=== PATIENT | male | born 1950 | race Caucasian/White ===

== ENCOUNTER 2019-09-29 14:06 | Inpatient (IN) ==
--- NOTE | 2019-09-29 14:45 | PROVIDER DOCUMENTATION ---
HPI-EENT General - General Chief Complaint: Flu Symptoms Stated Complaint: COLD SYMPTOMS/ SORE THROAT Time Seen by Provider: 09/29/19 14:34 Source: patient Allergies/Adverse Reactions: Patient Allergies Allergy/AdvReac Type Severity Reaction Status Date / Time No Known Allergies Allergy Verified 09/29/19 14:45 Home Medications: Home Medication List Medication Instructions Recorded Confirmed Last Taken Type Aspirin EC 81 mg PO DAILY 03/24/14 09/29/19 08/26/15 History Docusate Sodium [Stool Softener] 100 mg PO BID 03/24/14 09/29/19 08/26/15 History Gabapentin 600 mg PO TID 03/24/14 09/29/19 08/26/15 History Omeprazole 40 mg PO QAM 03/24/14 09/29/19 08/26/15 History SIMVAstatin [Zocor] 40 mg PO QHS 03/24/14 09/29/19 08/26/15 History Trazodone [Desyrel] 50 mg PO HS PRN PRN 03/24/14 09/29/19 08/26/15 History Citalopram [Celexa] 20 mg PO DAILY 02/23/17 09/29/19 Unknown History Insulin Glargine [Lantus] 65 units SQ QHS 02/23/17 09/29/19 Unknown History Primidone 25 mg PO QHS 02/23/17 09/29/19 Unknown History Cholecalciferol (Vitamin D3) 1 cap PO DIRECTED 04/28/19 09/29/19 Unknown History [Vitamin D3] Insulin Lispro [Humalog] 25 units SQ AC + HS 04/28/19 09/29/19 Unknown History Sucralfate 1 tab PO AC + HS 04/28/19 09/29/19 Unknown History Tizanidine [Zanaflex] 1 tab PO QHS 04/28/19 09/29/19 Unknown History Lubiprostone [Amitiza] 24 mcg PO BID 06/02/19 09/29/19 Unknown History CefDINIR [Omnicef] 300 mg PO BID 09/29/19 09/29/19 Unknown History - History of Present Illness-EENT General Nature of Presenting Problem: Patient is a 68yo M who presents with complaints of sore throat, cough, nasal congestion, decreased appetite, fever, and body aches x1 week. Reports symptoms have worsened over the past 4 days. States he saw his PCP yesterday who gave him a steroid shot and Omnicef Rx. Patient reports today, he is having difficulty swallowing saliva. Reports he is a diabetic, and has not been able to eat much over the past 4 days. , who is at bedside, reports his blood sugar this morning was > 400, and she gave him some insulin. Upon examination, patient is able to swallow some saliva, but is having to spit out some. Denies difficulty breathing, CP, or SOB. EENT Location: reports: nose, throat Quality of Pain: reports: aching Severity: reports: moderate Onset/Duration: reports: 1 week ago Timing: reports: still present, getting worse Prearrival Treatment: Initiated prescription meds Associated Symptoms: reports: cough, fever, nasal congestion/drainage, sore throat Locality of [place]: Home Similar Symptoms Previously?: No Recently seen or treated by another doctor?: Yes (saw PCP yesterday) - Throat/Dental Throat/Dental Problem Symptoms: reports: sore throat, other (difficulty swallowing). denies: toothache, swelling of jaw/face, trouble breathing Review of Systems - Adult - REVIEW OF SYSTEMS - ADULT Constitutional: reports: see HPI, chills, fever Eyes: reports: no symptoms reported Ears, Nose, Mouth & Throat: reports: see HPI, sinus problem, throat pain, other (difficulty swallowing) Cardiovascular: reports: no symptoms reported. denies: chest pain, palpitations Respiratory: reports: see HPI, cough. denies: shortness of breath Gastrointestinal: reports: see HPI, difficulty swallowing, poor appetite Genitourinary: reports: no symptoms reported Musculoskeletal: reports: no symptoms reported Integumentary: reports: no symptoms reported Neurological: reports: no symptoms reported Psychiatric: reports: no symptoms reported Endocrine: reports: no symptoms reported Hematologic/Lymphatic: reports: no symptoms reported Allergic/Immunologic: reports: no symptoms reported All Other Systems: Reviewed and Negative Past History - Adult - PAST MEDICAL HISTORY-ADULT Review of Records: reports: Nursing Assessment Review, Medications Reviewed, Social history reviewed & non-contributory. Major Childhood Illnesses: reports: denies history Cardiovascular: reports: HTN, hyperlipidemia Respiratory: reports: denies history Gastrointestinal: reports: denies history Obstetrical/Gynecological: reports: denies history Genitourinary: reports: denies history Musculoskeletal: reports: denies history Neurological: reports: denies history Psychiatric: reports: depression Endocrine/Immune: reports: Diabetes Other Conditions: reports: denies history - IMMUNIZATION STATUS Childhood Immunizations: See Nurse Assessment Flu Vaccine: See Nurse Assessment - FAMILY HISTORY Family History: reviewed, not pertinent - SOCIAL HISTORY Smoking: denies, non-smoker Physical Exam- EENT - Physical Exam EENT Initial Vital Signs Reviewed: Yes General Appearance: alert, mild distress. negative: lethargic, slow to respond Eye Exam: bilateral eye: normal inspection, PERRL, EOMI Ear Exam: bilateral ear: auricle normal, canal normal, TM normal Nasal Exam: normal inspection, other (nasal congestion) Throat Exam: tonsillar exudate, tonsillar swelling, other (pharyngeal erythema/exudate). negative: excessive drooling, uvula swelling, voice changes Neck: full range of motion, supple, normal inspection, lymphadenopathy Respiratory: chest non-tender, lungs clear, normal breath sounds, no pleuratic chest pain, no respiratory distress, no accessory muscle use. negative: crackles, rales, rhonchi, stridor, wheezing, retractions, splinting Cardiovascular: regular rate, rhythm Lymphatic: cervical node tenderness Back Exam: normal inspection Extremity: normal range of motion Integumentary: normal color, warm/dry. negative: cyanosis, jaundice, mottled, pallor Neurologic: grossly normal. negative: aphasia, EOM palsy Psych/Mental Status: normal mood/affect, normal thought content, normal thought process, oriented x 3 Progress - PLAN OF CARE/RESULTS Progress/Plan/Lab Results: Vital Signs - 8 hr 09/29/19 14:27 Temperature 98 F Pulse Rate 95 H Respiratory Rate 18 Blood Pressure 162/76 O2 Sat by Pulse Oximetry 98 Laboratory Results - last 24 hr 09/29/19 09/29/19 09/29/19 14:36 14:36 15:17 WBC RBC Hgb Hct MCV MCH MCHC RDW Std Deviation Plt Count MPV Immature Gran % (Auto) Neut % (Auto) Lymph % (Auto) [place] % (Auto) Eos % (Auto) Baso % (Auto) Immature Gran # (Auto) Neut # (Auto) Lymph # (Auto) [place] # (Auto) Eos # (Auto) Baso # (Auto) Sodium 137 Potassium 4.0 Chloride 99 Carbon Dioxide 20 L Anion Gap 18 BUN 30 H Creatinine 1.0 Estimated GFR/1.73 m2 > 60 BUN/Creatinine Ratio 30 Glucose 188 H Calculated Osmolality 285 Calcium 10.1 Total Bilirubin 0.50 AST 13 ALT 12 Alkaline Phosphatase 112 Total Protein 9.2 H Albumin 4.7 Globulin 5.0 Albumin/Globulin Ratio 1.0 Urine Source Urine Color Urine Turbidity Urine pH Ur Specific [place] Urine Protein Ur Glucose (Stick) Ur Ketones (Stick) Urine Blood Urine Nitrite Urine Bilirubin Urobilinogen Dipstick Urine Leukocytes Urine WBC (Auto) Urine RBC (Auto) U Epithel Cells (Auto) Urine Bacteria (Auto) Acetone Level NEGATIVE Influenza A (Rapid) NEGATIVE Influenza B (Rapid) NEGATIVE Group A Strep Rapid NEGATIVE 09/29/19 09/29/19 15:17 15:35 WBC 15.46 H RBC 4.65 L Hgb 14.6 Hct 42.2 MCV 90.8 MCH 31.4 H MCHC 34.6 RDW Std Deviation 12.7 Plt Count 248 MPV 10.1 Immature Gran % (Auto) 0.2 Neut % (Auto) 75.7 H Lymph % (Auto) 16.4 L [place] % (Auto) 7.6 Eos % (Auto) 0.0 Baso % (Auto) 0.1 Immature Gran # (Auto) 0.03 Neut # (Auto) 11.71 H Lymph # (Auto) 2.54 [place] # (Auto) 1.17 H Eos # (Auto) 0.00 Baso # (Auto) 0.01 Sodium Potassium Chloride Carbon Dioxide Anion Gap BUN Creatinine Estimated GFR/1.73 m2 BUN/Creatinine Ratio Glucose Calculated Osmolality Calcium Total Bilirubin AST ALT Alkaline Phosphatase Total Protein Albumin Globulin Albumin/Globulin Ratio Urine Source CLEAN CATCH Urine Color YELLOW Urine Turbidity CLEAR Urine pH 5.0 Ur Specific [place] 1.025 Urine Protein TRACE A Ur Glucose (Stick) 70 A Ur Ketones (Stick) 40 A Urine Blood NEGATIVE Urine Nitrite NEGATIVE Urine Bilirubin NEGATIVE Urobilinogen Dipstick NORMAL Urine Leukocytes TRACE A Urine WBC (Auto) <10 Urine RBC (Auto) <10 U Epithel Cells (Auto) >10 A Urine Bacteria (Auto) NEGATIVE Acetone Level Influenza A (Rapid) Influenza B (Rapid) Group A Strep Rapid Orders Category Date Time Status Admit - [facility] Routine AdmDCTranf 09/29/19 18:12 Active Activity - Up Ad Mary ORDERED Care 09/29/19 18:27 Active Activity - Up with Assistance ORDERED Care 09/29/19 18:12 Active DVT/PE Risk Assess/Protocol [QM] ORDERED Care 09/29/19 18:12 Active FSBS [Finger Stick Blood Sugar (ED)] DIRECTED Care 09/29/19 14:57 Active FSBS/Accucheck Result AC + HS Care 09/29/19 18:27 Active Intake and Output-Strict ORDERED Care 09/29/19 18:12 Active PO Fluid Challenge DIRECTED Care 09/29/19 17:14 Active Vital Signs Order Q 8-HR ASSESS Care 09/29/19 18:[address] NECK W/CONTRAST [CT] Stat Exams 09/29/19 15:47 Completed NECK AP AND/OR LAT SOFT TISSUE [RAD] Stat Exams 09/29/19 14:57 Completed ACETONE SERUM [CHEM] Stat Lab 09/29/19 15:17 Completed CBC WITH ELECTRONIC DIFF [HEME] Stat Lab 09/29/19 15:17 Completed CBC WITH NO DIFF [HEME] Routine Lab 09/30/19 06:00 Ordered COMPREHENSIVE METABOLIC PANEL [CHEM] Routine Lab 09/30/19 06:00 Ordered COMPREHENSIVE METABOLIC PANEL [CHEM] Stat Lab 09/29/19 15:[address] Stat Lab 09/29/19 14:36 Completed Flu [INFLUENZA SCREEN PL] Stat Lab 09/29/19 14:36 Completed MAGNESIUM [CHEM] Routine Lab 09/30/19 06:00 Ordered SPUTUM CULTURE WITH GRAM STAIN [RM] Routine Lab 09/29/19 18:13 Uncollected TSH Routine Lab 09/30/19 06:00 Ordered URINALYSIS W/POSS RFLX CULT [URINALYSIS] Stat Lab 09/29/19 15:35 Completed URINE CULTURE [RM] Routine Lab 09/29/19 16:17 Ordered 0.9% Sodium Chloride Inj [Ns] 1,000 ml Med 09/29/19 18:30 Active IV 125 mls/hr 0.9% Sodium Chloride Inj [Ns] 1,000 ml Med 09/29/19 16:57 Discontinued IV 999 mls/hr 0.9% Sodium Chloride Inj [Ns] 500 ml Med 09/29/19 16:58 Discontinued IV 999 mls/hr Acetaminophen [Tylenol] Med 09/29/19 18:26 Active 650 mg PO Q6H PRN PRN CefTRIAXONE [Rocephin] 1 gm Med 09/29/19 16:39 Discontinued 0.9% Sodium Chloride Inj [Ns] 50 ml IV NOW CefTRIAXONE [Rocephin] 1 gm Med 09/29/19 18:30 Active 0.9% Sodium Chloride Inj [Ns] 50 ml IV Q24H Citalopram [Celexa] Med 09/30/19 09:00 Active 20 mg PO DAILY Docusate Sodium [Colace] Med 09/29/19 21:00 Active 100 mg PO BID Ergocalciferol (Vitamin D2) [Vitamin D] Med 10/02/19 09:00 Active 1 unit PO Sa Gabapentin [Neurontin] Med 09/29/19 21:00 Active 600 mg PO TID@0800,1400,2100 Insulin Lispro [Humalog] Med 09/29/19 21:00 Active See Protocol SUBQ 0700,1100,1600,2100 Lubiprostone [Amitiza] Med 09/29/19 21:00 Active 24 microgm PO BID Omeprazole [Prilosec] Med 09/30/19 09:00 Active 40 mg PO QAM Ondansetron [Zofran] Med 09/29/19 18:26 Active 4 mg IV Q4-6H PRN PRN Primidone [Mysoline] Med 09/29/19 21:00 Active 25 mg PO QHS SIMVAstatin [Zocor] Med 09/29/19 21:00 Active 40 mg PO QHS Sucralfate [Carafate] Med 09/29/19 21:00 Active 1 gm PO AC + HS Tizanidine [Zanaflex] Med 09/29/19 21:00 Active 4 mg PO QHS Trazodone [Desyrel] Med 09/29/19 18:13 Active 50 mg PO HS PRN PRN Transfer/Admit Order [TRANSFER] Routine Transfer 09/29/19 18:28 Ordered Patient's soft tissue neck x-ray negative, however d/t elevation on WBC and patient presentation, CT Neck recommended by Dr. Hastings. Patient Strep negative, however d/t presence of pharyngeal exudate/erythema, will empirically treat for Strep. Plan of care discussed and formulated in conjunction with Dr. Hastings who also examined the patient. 1800: Patient unable to tolerate PO water and has to spit it back out. Will consult Hospitalist for admission. Result Diagrams: 09/29/19 15:17 09/29/19 15:17 - REASSESSMENT Reassessment #1 Time Reassessed: 15:00 Status: improving Reassessment #3 Time Reassessed: 18:00 Status: unchanged Reassessment Comment: Pt experiencing difficulty swallowing water; has to spit it back out - XRAY 1 XRAY: Bilateral XRAY Study: other (Soft Tissue Neck) Impression: See EMR Report ([facility] - [address] [facility], [address], [place] [address] [facility] - [address] , [place] [address] Department of Imaging Patient: FLORESITA BECKWITH JR WADM Date: 09/29/19MR#: [id number] : 1950DM Status: REG ERAcct#: [id number] Age/Sex: 68/MRoom/Bed: Loc: P.ED Ordering Physician: Demi No Family Physician: Roya Patel Reason for Procedure: Sore throat; difficulty swallowing saliva Signed EXAM: NECK AP AND/OR LAT SOFT TISSUE HISTORY: Sore throat; difficulty swallowing saliva TECHNIQUE: Two views COMPARISON: None. FINDINGS: Airway appears grossly patent. No prevertebral soft tissue swelling is appreciated. Epiglottis appears normal. There is degenerative disc disease and anterior osteophyte formation cervical spine. IMPRESSION: No acute abnormalities. Electronically signed by Karin Shetty 09/29/2019 3:37 PM 09/29/19 1537 Interpreting Physician: Karin Shetty MD Dictated Date/Time: 09/29/19 1535 cc: Demi Ravi; Roya Patel) - CT/MRI 1 CT Study: Neck Impression: See EMR Report ([facility] - [address] , [address], [place] [address] [facility] - [address] [place] [address] Department of Imaging Patient: FLORESITA BECKWITH JR WADM Date: 09/29/19MR#: [id number] : 1950DM Status: REG [facility]#: [id number] Age/Sex: 68/MRoom/Bed: Loc: P.ED Ordering Physician: Demi No Family Physician: Roya Patel Reason for Procedure: Throat pain; dysphagia; r/o abscess Signed EXAM: CT NECK W/CONTRAST HISTORY: Throat pain; dysphagia; r/o abscess TECHNIQUE: This exam was performed using automated exposure control, adjustment of mA or kV according to patient size, and/or use of iterative reconstruction technique. COMPARISON: None. FINDINGS: Visualized globes and intraorbital orbital contents are unremarkable. Paranasal sinuses, mastoid air cells, middle ear cavities are clear. Nasopharynx, oropharynx, epiglottis and larynx are unremarkable. Submandibular glands, parotid gland, and thyroid gland unremarkable. No lymphadenopathy is appreciated. No inflammatory changes. Tonsils are not enlarged. No evidence for tonsillar or peritonsillar abscess. IMPRESSION: No acute abnormalities. No evidence for tonsillar or peritonsillar abscess. Electronically signed by Karin Shetty 09/29/2019 4:50 PM 09/29/19 1650 Interpreting Physician: Karin Shetty MD Dictated Date/Time: 09/29/19 1645 cc: Demi Ravi; Roya Patel) - CONSULTS/PCP/HOSPITALIST Notification #1 *Consult/PCP/Hospitalist*: Bret Castañedaist Time Discussed: 18:03 Reason/Comments: Pharyngitis, dysphagia, leukocytosis Consult Disposition: Will see in ED, Admit Departure - Departure Date of Disposition Decision: 09/29/19 Time of Disposition Decision: 18:06 DIAGNOSIS: Hyperglycemia, Dehydration Pharyngitis Qualifiers: Pharyngitis/tonsillitis etiology: unspecified etiology Qualified Code(s): J02.9 - Acute pharyngitis, unspecified Dysphagia Qualifiers: Dysphagia type: unspecified Qualified Code(s): R13.10 - Dysphagia, unspecified Leukocytosis, unspecified Qualifiers: Leukocytosis type: unspecified Qualified Code(s): D72.829 - Elevated white blood cell count, unspecified Disposition: ADMITTED INPATIENT 09 Certified Medical Emergency: Emergent Condition: Stable Referrals and Follow-Ups: Roya Patel CRNP [Primary Care Provider] - - Critical Care Note This patient required my direct & personal management of CC.: No Attestation - Physician/ VALERIE Attestation Patient care was provided by Advanced Practice Provider:: Yes Advanced Practice Provider:: Demi Ravi Advanced Practice Provider documentation review:: The Mid-level provider documentation, treatment plan and medical decision making was reviewed by the ph ysician who agrees with all treatment and medical decision making by the MLP. The physician spent face to face time with patient:: Yes (Venkata) Advanced Practice Provider documentation review:: Supervising physician onsite and consulted in the evaluation and care of this patient. The physician did have a face to face encounter with the patient.
[2019-09-29 15:24] LABS: INFLUENZA A NEGATIVE (NEGATIVE); INFLUENZA B NEGATIVE (NEGATIVE)
[2019-09-29 15:25] LABS: BASO# 0.01 X1000 (0.0-0.2); BASO% 0.1 % (0.0-0.8); HEMATOCRIT 42.2 % (42.0-52.0); HEMOGLOBIN 14.6 g/dL (14.0-18.0); IMM GRAN# 0.03 X1000 (0.0-0.04); IMM GRAN% 0.2 % (0.0-0.5); LYMPH# 2.54 X1000 (1.2-3.4); LYMPH% 16.4 % (20.5-51.1); MCH 31.4 PG (27-31); MCHC 34.6 g/dL (33-37); MCV 90.8 FL (81-99); MONO# 1.17 X1000 (0.11-0.59); MONO% 7.6 % (1.7-9.3); MPV 10.1 FL (7.4-10.4); NEUT# 11.71 X1000 (1.4-6.5); NEUT% 75.7 % (42.2-75.2); PLT 248 X1000 (130-400); RBC 4.65 XMIL (4.7-6.1); RDW 12.7 % (11.5-14.5); WBC 15.46 X1000 (4.8-10.8)
[2019-09-29 15:31] LABS: ACETONE SERUM NEGATIVE (NEGATIVE)
[2019-09-29 15:38] LABS: AGAP 18; ALBUMIN 4.7 g/dL (3.5-5.0); ALKALINE PHOSPHATASE 112 U/L (32-122); BUN 30 mg/dL (8-22); CALCIUM 10.1 mg/dL (8.8-10.2); CHLORIDE 99 mmol/L (98-107); COSMO 285; ESTIMATED GFR > 60; GLUCOSE 188 mg/dL (70-104); GOT 13 U/L (10-34); GPT 12 U/L (10-44); SODIUM 137 mmol/L (136-145); TCO2 20 mmol/L (25-35); TOTAL PROTEIN 9.2 g/dL (6.3-8.3)
--- NOTE | 2019-09-29 15:39 | Diag Imaging Result Doc PS360 ---
EXAM: NECK AP AND/OR LAT SOFT TISSUE HISTORY: Sore throat; difficulty swallowing saliva TECHNIQUE: Two views COMPARISON: None. FINDINGS: Airway appears grossly patent. No prevertebral soft tissue swelling is appreciated. Epiglottis appears normal. There is degenerative disc disease and anterior osteophyte formation cervical spine. IMPRESSION: No acute abnormalities. Electronically signed by Karin Shetty 09/29/2019 3:37 PM
[2019-09-29 15:58] LABS: URINE SOURCE CLEAN CATCH
[2019-09-29 16:16] LABS: BILIRUBIN URINE NEGATIVE (NEGATIVE); BLOOD URINE NEGATIVE (NEGATIVE); COLOR YELLOW; GLUCOSE URINE 70 mg/dL (NEGATIVE); KETONE URINE 40 mg/dL (NEGATIVE); NITRITE URINE NEGATIVE (NEGATIVE); PROTEIN URINE TRACE mg/dL (NEGATIVE); SP GRAVITY URINE 1.025; TURBIDITY URINE CLEAR (CLEAR); UR EPITHELIAL CELLS >10 /HPF (<10); URINE BACTERIA NEGATIVE /HPF; URINE RBC <10 /HPF (<10); URINE WBC <10 /HPF (<10); UROBILINOGEN URINE NORMAL (NORMAL)
[2019-09-29 16:17] LABS: LEUKOCYTES URINE TRACE (NEGATIVE)
[2019-09-29] MEDS ORDERED: ROCEPHIN 1 GM in NS 50 ML IV ONE (16:39)
--- NOTE | 2019-09-29 16:52 | Diag Imaging Result Doc PS360 ---
EXAM: CT NECK W/CONTRAST HISTORY: Throat pain; dysphagia; r/o abscess TECHNIQUE: This exam was performed using automated exposure control, adjustment of mA or kV according to patient size, and/or use of iterative reconstruction technique. COMPARISON: None. FINDINGS: Visualized globes and intraorbital orbital contents are unremarkable. Paranasal sinuses, mastoid air cells, middle ear cavities are clear. Nasopharynx, oropharynx, epiglottis and larynx are unremarkable. Submandibular glands, parotid gland, and thyroid gland unremarkable. No lymphadenopathy is appreciated. No inflammatory changes. Tonsils are not enlarged. No evidence for tonsillar or peritonsillar abscess. IMPRESSION: No acute abnormalities. No evidence for tonsillar or peritonsillar abscess. Electronically signed by Karin Shetty 09/29/2019 4:50 PM
[2019-09-29] MEDS ORDERED: NS 1,000 ML IV ONE (16:57)
[2019-09-29] MEDS ORDERED: NS 500 ML IV ONE (16:58)
[2019-09-29] MEDS ORDERED: DESYREL PO PRN (18:13)
[2019-09-29] MEDS ORDERED: ZOFRAN IV PRN (18:26)
[2019-09-29] MEDS: ROCEPHIN 1 GM in NS 50 ML IV SCH (19:48)
--- NOTE | 2019-09-29 22:49 | HISTORY AND PHYSICAL ---
PYTHON ARCHITECT: IVAN Contreras. CHIEF COMPLAINT: Sore throat. HISTORY OF PRESENT ILLNESS: Mr. Rodarte is a 68-year-old male with past medical history of hypertension, hyperlipidemia, depression, diabetes mellitus type 2, gastroparesis, recent H pylori infection, constipation, hemorrhoids, neuropathy, coronary artery disease, and chronic migraines. The patient does present to the ER today with complaints of sore throat with dysphagia, fever, chills, night sweats, cough with clear congestion, headache, malaise, fatigue and weakness for the past 4 days. The patient did go see his non linear editor, IVAN Contreras, yesterday. He was given a prescription for Omnicef. The patient states he still continued to have difficulty swallowing and he has been unable to eat anything for the past 4 days, so he decided to come to the ER at this time. The patient does deny any vision changes, dizziness neck pain, excessive thirst, chest pain, palpitations, orthopnea, PND, leg edema, dyspnea, nausea, melena, hematochezia, diarrhea, dysuria, hematuria, muscle pain, syncope, dizziness, or any other pertinent symptoms at this time. REVIEW OF SYSTEMS: A 10 point review of systems has been obtained and are negative except what is stated above in HPI. PAST MEDICAL HISTORY: 1. Hypertension. 2. Hyperlipidemia. 3. Situational depression. 4. Diabetes mellitus type 2. 5. Gastroparesis. 6. Neuropathy. 7. Constipation. 8. Recent H pylori infection. 9. Hemorrhoids. 10. Coronary artery disease. 11. Chronic migraines. PAST SURGICAL HISTORY: 1. CABG. 2. Brain decompression surgery due to migraines. 3. Right ankle repair. 4. Left shoulder rotator cuff surgery. SOCIAL HISTORY: Patient does live at home with his . He is disabled. He denies any smoking history. He states he does dip tobacco 1 can per day. He denies any alcohol or illicit drug use. Patient does not use any ambulatory devices. Patient's pharmacy is [facility] in [place]. FAMILY HISTORY: Brother had a CABG. He has 2 sisters that both had acute MIs. ALLERGIES: No known drug allergies. HOME MEDICATIONS: 1. Trazodone 50 mg p.o. at bedtime p.r.n. 2. Gabapentin 600 mg p.o. t.i.d. 3. Omeprazole 40 mg p.o. every morning. 4. Simvastatin 40 mg p.o. at bedtime. 5. Aspirin 81 mg p.o. daily. 6. Docusate sodium 100 mg p.o. b.i.d. 7. Primidone 25 mg p.o. at bedtime. 8. Lantus 65 units subcutaneous at bedtime. 9. Celexa 20 mg p.o. daily. 10. Humalog insulin 25 units subcu a.c. and at bedtime. 11. Sucralfate 1 tablet p.o. a.c. and at bedtime. 12. Vitamin D3 1 capsule p.o. as directed at 1250 mcg. 13. Zanaflex 1 tablet p.o. at bedtime. 14. Amitiza 24 mcg p.o. b.i.d. 15. Omnicef 300 mg p.o. b.i.d. PHYSICAL EXAMINATION: VITAL SIGNS: Temperature 98.0 degrees, pulse rate 95, respiratory rate 18, blood pressure 162/76, O2 saturation 98% on room air. GENERAL: This is a 68-year-old male who is well nourished, well developed, in no acute distress. HEENT: Atraumatic, normocephalic. Pupils equal, round, reactive to light. Mucous membranes are dry. NECK: Supple. No lymphadenopathy. Trachea is midline. No JVD. CARDIOVASCULAR: Regular rate and rhythm. No murmurs, gallops, or rubs appreciated. RESPIRATORY: Lung sounds clear. Equal chest excursion. Respirations nonlabored. No accessory muscle usage GI: Abdomen is soft, nontender, nondistended. Bowel sounds present x4. : No suprapubic tenderness noted. The patient voiding without difficulty. NEUROLOGIC: Patient is awake, alert, oriented, able to follow all commands appropriately. MUSCULOSKELETAL: Full strength noted. No abnormalities no deformities. EXTREMITIES: No clubbing or cyanosis. No edema. DP and PT pulses present palpable. SKIN: Warm, dry, intact. No rashes. No bruises. No diaphoresis. LABS AND DIAGNOSTICS: White blood cell count 15.46, hemoglobin 14.6, hematocrit 42.2, platelet count 248,000. Sodium 137, potassium 4.0, chloride 99, carbon dioxide 20, BUN is 30, creatinine 1.0, estimated GFR is greater than 60, glucose 188, acetone levels negative. Influenza a negative. Group A strep negative. CT of the neck shows no acute abnormalities. No evidence for tonsillar or peritonsillar abscess. X-ray of the neck and lateral soft tissue shows no acute abnormalities. ASSESSMENT: 1. Acute pharyngitis. 2. Leukocytosis. 3. Dysphagia. 4. 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 5. Coronary artery disease status post coronary artery bypass grafting. 6. Chronic migraines. 7. Hypertension. 8. Hyperlipidemia. PLAN: We will admit this patient to the medical floor. We will start this patient on IV fluid hydration of normal saline at 125 mL an hour. We will start this patient on Rocephin 1 g q.24 hours. We will resume home medications. Place this patient on vital signs every 8 hours. Do strict intake and output. Do fingerstick blood sugars before meals and at bedtime. The patient can be up with assistance. We will repeat labs in the morning. Do a sputum culture. We did resume patient's home insulin. Patient can have a diet when patient is able to tolerate fluids. All other further treatment pending hospital course and laboratory data. Dictated by IVAN Montoya for Marco Castañeda MD cc: MD Roya Davis CRNP
[2019-09-30] MEDS: AMITIZA PO SCH ×3 (00:12→22:14)
[2019-09-30] MEDS: MYSOLINE PO SCH ×3 (00:12→22:17)
[2019-09-30] MEDS: ZOCOR PO SCH ×2 (00:12→22:15)
[2019-09-30] MEDS: ZANAFLEX PO SCH ×2 (00:12→22:15)
[2019-09-30] MEDS: HUMALOG SUBQ SCH ×3 (00:13→11:45)
[2019-09-30] MEDS: CARAFATE PO SCH ×5 (00:13→22:15)
[2019-09-30] MEDS: NEURONTIN PO SCH ×6 (00:13→22:16)
[2019-09-30] MEDS: COLACE PO SCH ×3 (00:13→22:18)
[2019-09-30] MEDS: NS 1,000 ML IV SCH ×4 (02:44→23:05)
--- NOTE | 2019-09-30 04:10 | HISTORY AND PHYSICAL ---
ADDENDUM: Patient seen and examined by myself. Full note dictated and discussed with nurse practitioner. Patient presented to the hospital increased sore throat, decreased oral intake. Notes he really has not been able to eat or drink past 5 days. Denies any true fevers, has had chills. Also, notes his blood sugars have been elevated. We are going to admit him to the hospital. IV fluids, antibiotics, control his sugars. Further orders as needed. cc: Marco Castañeda MD
[2019-09-30] MEDS: MORPHINE IV PRN ×3 (05:53→22:10)
[2019-09-30 06:12] LABS: HEMATOCRIT 39.6 % (42.0-52.0); HEMOGLOBIN 13.2 g/dL (14.0-18.0); MCH 30.8 PG (27-31); MCHC 33.3 g/dL (33-37); MCV 92.5 FL (81-99); MPV 10.4 FL (7.4-10.4); RBC 4.28 XMIL (4.7-6.1); WBC 9.95 X1000 (4.8-10.8)
[2019-09-30 06:25] LABS: AGAP 16; ALBUMIN 3.9 g/dL (3.5-5.0); ALKALINE PHOSPHATASE 103 U/L (32-122); BUN 31 mg/dL (8-22); CALCIUM 9.2 mg/dL (8.8-10.2); CHLORIDE 102 mmol/L (98-107); COSMO 286; CREATININE 0.9 mg/dL (0.7-1.2); ESTIMATED GFR > 60; GLUCOSE 197 mg/dL (70-104); GOT 10 U/L (10-34); GPT 9 U/L (10-44); MAGNESIUM 2.2 mg/dL (1.5-2.7); POTASSIUM 3.7 mmol/L (3.5-5.1); SODIUM 137 mmol/L (136-145); TCO2 20 mmol/L (25-35)
[2019-09-30] MEDS: CELEXA PO SCH (08:20)
[2019-09-30] MEDS ORDERED: PRILOSEC PO SCH (09:00)
[2019-09-30] MEDS: HUMALOG (PARKWAY) SUBQ SCH ×2 (18:45→22:19)
[2019-09-30] MEDS: ROCEPHIN 1 GM in NS 50 ML IV SCH (18:46)
[2019-09-30] MEDS ORDERED: CARAFATE PO SCH (21:00)
--- NOTE | 2019-10-01 01:33 | PROGRESS NOTE ---
DATE: 09/30/2019 SUBJECTIVE: Patient notes that he is still having difficulty swallowing. Denies any fevers, chills, headaches, blurred vision. Denies getting strangled. Denies coughing, congestion. Denies burping, belching. PHYSICAL EXAMINATION: Vital Signs: Temperature 98 degrees, pulse 73, respiratory rate 18, BP 157/72. General: Patient is pleasant. He is in no current distress. HEENT: Normocephalic. Neck: Supple. Cardiovascular: Regular rate. Chest: Clear and nonlabored. Abdomen: Soft, nondistended. Extremities: Moves all extremities. Neurologic: No changes. ASSESSMENT: 1. Acute pharyngitis. 2. Leukocytosis. White count has actually improved from 15 down to 9. 3. Dysphagia of undetermined origin or significance. 4. Type 2 diabetes with neuropathy and gastroparesis. 5. Known coronary artery disease status post bypass grafting. 6. Hypertension. 7. Hyperlipidemia. PLAN: We are going to continue patient in the hospital. Continue to treat blood pressures. Continue fluids. We will add Carafate. If his symptoms do not improve, may need an EGD. cc: Marco Castañeda MD
[2019-10-01 06:16] LABS: HEMATOCRIT 37.5 % (42.0-52.0); HEMOGLOBIN 12.2 g/dL (14.0-18.0); MCH 30.2 PG (27-31); MCHC 32.5 g/dL (33-37); MCV 92.8 FL (81-99); MPV 9.7 FL (7.4-10.4); RBC 4.04 XMIL (4.7-6.1); RDW 12.6 % (11.5-14.5); WBC 7.47 X1000 (4.8-10.8)
[2019-10-01] MEDS: NS 1,000 ML IV SCH ×3 (06:21→17:06)
[2019-10-01] MEDS: HUMALOG (PARKWAY) SUBQ SCH ×4 (06:21→21:19)
[2019-10-01 06:34] LABS: AGAP 13; ALBUMIN 3.5 g/dL (3.5-5.0); ALKALINE PHOSPHATASE 81 U/L (32-122); BUN 26 mg/dL (8-22); CALCIUM 8.8 mg/dL (8.8-10.2); CHLORIDE 106 mmol/L (98-107); COSMO 285; CREATININE 0.8 mg/dL (0.7-1.2); ESTIMATED GFR > 60; GLUCOSE 156 mg/dL (70-104); GOT 11 U/L (10-34); GPT 9 U/L (10-44); POTASSIUM 3.8 mmol/L (3.5-5.1); SODIUM 139 mmol/L (136-145); TCO2 20 mmol/L (25-35); TOTAL PROTEIN 7.1 g/dL (6.3-8.3)
[2019-10-01] MEDS: TYLENOL PO PRN ×2 (08:08→21:09)
[2019-10-01] MEDS: CARAFATE PO SCH ×4 (08:11→21:10)
[2019-10-01] MEDS: PRILOSEC PO SCH (08:11)
[2019-10-01] MEDS: COLACE PO SCH ×2 (08:18→23:14)
[2019-10-01] MEDS ORDERED: COLACE PO SCH (09:00)
[2019-10-01] MEDS: NEURONTIN PO SCH ×3 (11:44→23:14)
[2019-10-01] MEDS: CELEXA PO SCH (11:44)
[2019-10-01] MEDS: AMITIZA PO SCH ×2 (13:35→17:02)
[2019-10-01] MEDS: ROCEPHIN 1 GM in NS 50 ML IV SCH (18:09)
[2019-10-01] MEDS: MYSOLINE PO SCH (21:10)
[2019-10-01] MEDS: ZOCOR PO SCH (21:10)
[2019-10-01] MEDS: ZANAFLEX PO SCH (21:10)
--- NOTE | 2019-10-01 23:04 | PROGRESS NOTE ---
DATE: 10/01/2019 SUBJECTIVE: Patient notes that he was able to get down a little bit of Jell-O earlier. Sore throat is improving. Denies any fevers, chills, or headaches. OBJECTIVE: Vital Signs: Reviewed. He is afebrile. Pulse is stable. Blood pressure is stable. General: Patient is a chronically ill-appearing male who is in no current respiratory distress. HEENT: Normocephalic. Neck: Supple. Cardiovascular: Regular rate. Chest: Clear. Abdomen: Soft. Extremities: Moves all extremities. ASSESSMENT: 1. Acute pharyngitis. 2. Leukocytosis. 3. Dysphagia. 4. Diabetes. 5. Coronary artery disease. PLAN: Patient's CT was negative. We are going to continue antibiotics. Continue supportive care. Hopefully home over the next 1 or 2 days. cc: Marco Castañeda MD
[2019-10-02] MEDS: NS 1,000 ML IV SCH ×3 (01:27→10:00)
[2019-10-02 05:26] VITALS: BP 145/66
[2019-10-02] MEDS: PRILOSEC PO SCH (06:09)
[2019-10-02] MEDS: CARAFATE PO SCH ×3 (06:10→12:57)
[2019-10-02] MEDS: HUMALOG (PARKWAY) SUBQ SCH ×2 (06:40→12:57)
[2019-10-02] MEDS ORDERED: VITAMIN D PO SCH (09:00)
[2019-10-02] MEDS: AMITIZA PO SCH (09:49)
[2019-10-02] MEDS: COLACE PO SCH (09:50)
[2019-10-02] MEDS: NEURONTIN PO SCH (09:51)
[2019-10-02] MEDS: CELEXA PO SCH (09:51)
--- NOTE | 2019-10-03 04:24 | DISCHARGE SUMMARY ---
ADMISSION DATE: 09/29/2019 DISCHARGE DATE: 10/02/2019 ADDENDUM: Patient seen examined by myself. Full note dictated and discussed with nurse practitioner. Patient presented to the hospital with leukocytosis and acute pharyngitis with dysphagia. All of this appears to have resolved. He ate a full breakfast. States that he is feeling better and therefore we will discharge him home. Please see full note. cc: Marco Castañeda MD
--- NOTE | 2019-10-04 04:09 | DISCHARGE SUMMARY ---
ADMISSION DATE: 10/02/2019 DISCHARGE DATE: 10/02/2019 ADMISSION DIAGNOSES: 1. Acute pharyngitis. 2. Leukocytosis. 3. Dysphagia. 4. 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 5. Coronary artery disease with history of bypass. 6. Chronic migraines. 7. Hypertension. 8. Hyperlipidemia. DISCHARGE DIAGNOSES: 1. Acute pharyngitis. 2. Leukocytosis. 3. Dysphagia. 4. Diabetes. 5. Coronary artery disease. CONSULTATIONS: None. SURGERIES AND PROCEDURES: None. HOSPITAL COURSE: On 09/29/2019, Kee Rodarte, a 68-year-old male, presented to [facility] with history of hypertension, hyperlipidemia, depression, diabetes, gastroparesis, history of H. Pylori, and had complaints of sore throat. He was diagnosed with pharyngitis. Apparently did go to his primary, Roya Patel NP, the day before presentation and was given a prescription for Omnicef. He continued to have difficulties with swallowing, not being able to eat for about 4 days. Also had leukocytosis with this. Swallow was not ordered, but on a daily basis he did start to improve with his swallowing. He was started on antibiotic therapy, Rocephin, and monitored on a daily basis and diet was advanced. DISCHARGE VITAL SIGNS: Temperature 97.6 degrees, heart rate 64, respiratory rate 18, blood pressure 145/66, O2 saturation 100% on room air. DISCHARGE LAB DATA: White blood cells 7,000, hemoglobin 12, hematocrit 37, platelet count 224,000. Sodium 139, potassium 3.8, BUN 26, creatinine 0.8, glucose 196, calcium 8.8. Hemoglobin A1c was 9.0, bilirubin 0.30, AST 11, ALT 9. Lactate was 1.6 on admission. TSH was 2.22. Flu was negative. Strep was negative. IMAGING: On September 29 had a soft tissue neck x-ray with no acute findings, and then neck CT with no acute findings. DISCHARGE MEDICATIONS: 1. Trazodone 50 mg p.o. nightly. 2. Primidone 50 mg p.o. nightly. 3. Simvastatin 40 mg p.o. nightly. 4. Amitiza 24 mcg p.o. twice daily. 5. Aspirin 81 mg p.o. daily. 6. Celexa 20 mg p.o. daily. 7. Neurontin 300 mg p.o. t.i.d. 8. Lispro insulin 20 units subcutaneously before meals and at night, that doesn't sound like and is most likely daily. 9. Linzess 145 mcg p.o. 10. Prilosec 40 mg p.o. daily. 11. Omnicef 300 mg p.o. twice daily. 12. Stool softener 100 mg p.o. daily. 13. Carafate 1 gm p.o. before meals and at night. 14. Calcium vitamin D3 1,250 mcg p.o. daily. 15. Zanaflex 4 mg p.o. twice daily. DISCHARGE PHYSICIAN FOLLOWUP: Roya Patel NP. DISCHARGE DIET: As tolerated, diabetic. DISCHARGE ACTIVITY: As tolerated. DISCHARGE INSTRUCTIONS: If your condition changes, contact your physician and/or return to the emergency department. Changes may include, but are not limited to, shortness of breath, increased fatigue, excessive bleeding, unexplained weight loss or gain, unmanageable pain, signs or symptoms of infection. DISCHARGE DISPOSITION: Home. Dictated by IVAN Street for Marco Castañeda MD cc: IVAN Street MD
== END 2019-10-02 13:30 | disposition home or self-care (01) | DRG 153 ==
LOC: P.MEDSURG 14:06 → P.ED 14:06
PROVIDERS: ATTEND Family Medicine